=== PATIENT | male | born 1940 | race Caucasian/White ===

== ENCOUNTER → 2017-10-03 08:47 | Outpatient (CLI) | payer OTHER ==
[2015-09-06 08:48] VITALS: BMI 30.7
[~2017-10-03 08:47] MED LIST: ACID REDUCER; BENADRYL25 MG PO
--- NOTE | 2017-10-08 09:02 | EC ---
PATIENT:EVAN BOWLES DATE OF SERVICE: 10/03/17 SEX: M MEDICAL RECORD: [id number] DATE OF : 36 LOCATION:[facility] AGE OF PATIENT: 76 ADMISSION DATE: 10/03/17 REFERRING PHYSICIAN: INTERPRETING PHYSICIAN: ELLIS HENDRIX MD ECHOCARDIOGRAM REPORT ECHO CHARGES 4 ECHO COMPLETE CLINICAL DIAGNOSIS: DIZZINESS ECHOCARDIOGRAPHIC MEASUREMENTS (adult normal given) AC root (d.<3.7cm) 3.9 cm LV Septum d (<1.2 cm> 1.6 cm Valve Excursion 1.4 cm LV Septum (systole) 2.6 cm Left Atria (s.<4.0cm> 3.4 cm LVPW d(<1.2cm) 1.4 cm RV (d.<2.3cm) 2.8 cm LVPW (sytole) 2.2 cm LV diastole(<5.6CM) 6.7 cm MV E-F(>70mm/sec) cm LV systole 4.2 cm LVOT Diameter 2.2 cm MV exc.(>10mm) cm Est.ejection fraction (50-75%) % Pericardial Effusion N DOPPLER: LVIT cm/sec A 71.0 cm/sec E 45.0 cm/sec LA cm/sec RVSP 27.1 mmHg LVOT 82.0 cm/sec AOP1/2T m/s Asc. Ao 387 cm/sec RVOT 67.0 cm/sec RA cm/sec PA 94.0 cm/sec AV Gradient Peak 60.0 mmHg AV Mean 35.0 mmHg AV Area 0.8 cm MV Gradient Peak 3.8 mmHg MV Mean 0.94 mmHg MV Area cm COMMENTS: Senior Software Quality Analyst: Evelia PIZARROOE Load Dispatcher Local: 1 Dr. Hendrix TAPE# PACS DATE OF SERVICE: 10/03/2017 ECHOCARDIOGRAM DATE OF SERVICE: 10/03/2017 FINDINGS: 1. Left ventricle chamber size is mildly dilated. Left ventricular systolic function is preserved. Overall ejection fraction estimated at 55%. 2. Left atrium, right atrium, and right ventricle chamber sizes are within ECHOCARDIOGRAM REPORT [id number] EVAN BOWLES normal limits. 3. Valvular structures: Aortic valve demonstrates moderate calcific aortic stenosis, valve area calculates to 0.8 cm-squared and there is gradient of 60 mm across the valve. The remaining valvular structures have normal structure and motion. 4. Doppler interrogation elsewise only reveals trace mitral regurgitation. No other valvular insufficiency or stenosis. Pulmonary systolic pressure is preserved at 27 mmHg. 5. No evidence of pericardial effusion or left ventricular thrombus. TRANSINT:[id number] Voice Confirmation ID: [id number] DOCUMENT ID: [id number] ELLIS HENDRIX MD at 0902 CC: [id number] DICTATION DATE: 10/03/17 1204 CUSTOMER ADVOCATE: 10/03/17 1220 DEP CLI 10/03/17 [id number] [place] [address]
== END | disposition home or self-care (01) ==
LOC: D.ECHO 08:47
DX: R42 Dizziness and giddiness (principal)

== ENCOUNTER 2020-06-01 17:45 | Inpatient (IN) | payer MEDICARE, BC ==
[~2020-06-01] VITALS: Ht 193 cm; Wt 105.9 kg
--- NOTE | ~2020-06-01 | HEMODYNAMI ---
PATIENT:EVAN BOWLES MEDICAL RECORD: [id number] : 36 LOCATION:[facility] D.2138 ADMISSION DATE: 06/01/20 Generatedon:06/04/202011:52 Patient name: EVAN BOWLES Patient #: [id number] : 1940 Date of study: 06/04/2020 Page: Of Hemodynamic Procedure Report Patient Data Patient Demographics Procedure consent was obtained First Name: EVAN Gender: Male Last Name: JELENA : 1940 Middle Initial: L Age: 79 year(s) Patient #: [id number] Race: SSN: [id number] Additional ID: [id number] Contact details Address: [address] [address] State: [place] City: [place] Zip code: [address] Past Medical History Allergies: No known allergies Admission Admission Data Admission Date: 06/01/2020 Admission Time: 20:59 Arrival Date: 06/01/2020 Arrival Time: 20:59 Admit Source: Emergency Insurance Payor: Medicare department [facility] #: [id number] Room #: D.2138 Height (in.): 75.98 BSA: 2.36 (m2) Height (cm.): 193 BMI: 28.19 (kg/m2) Weight (lbs.): 231.49 Weight (kg.): 105 Lab Results Lab Result Date: 06/04/2020 Lab Result Time: 0:00 Biochemistry Name Units Result Min Max BUN mg/dl 26 --(----)-* 7 18 Creatinine mg/dl 0.9 --(-*--)-- 0.6 1.3 eGFR ml/min 85.37444 -*(----)-- 90 120 NONAFRICAN CBC Name Units Result Min Max Hemoglobin g/dl 13 -*(----)-- 13.5 17.5 Procedure Procedure Types Cath Procedure Diagnostic Procedure LHC LHC w/Coronaries ARIEL Procedure Description Procedure Date Procedure Date: 06/04/2020 Procedure Start Time: 11:27 Procedure End Time: 11:43 Procedure Staff Name Function Gerardo Jay MD Performing Physician Francesca Chavez RT Monitor Rabia Lacey RT Scrub Esha Sargent RN Nurse [place] Provider Relations Consultant Procedure Data Cath Procedure Fluoroscopy Diagnostic fluoroscopy Total fluoroscopy Time: 4.2 time: 4.2 min min Diagnostic fluoroscopy Total fluoroscopy dose: 412 dose: 412 mGy mGy Contrast Material Contrast Material Type Amount (ml) Isovue 370 42 Entry Location Entry Primary Successful Side Size Upsize Upsize Entry Closure Succes sful Closure Location (Fr) 1 (Fr) 2 (Fr) Remarks Device Remarks Femoral Right 5 Fr Exoseal artery Estimated blood loss: 5 ml Diagnostic catheters Device Type Used For End Catheter Placement MULTIPACK JL 4.0 5Fr Procedure catheter MULTIPACK 3DRC 5Fr Procedure catheter Procedure Complications No complications Procedure Medications Medication Administration Route Dosage Oxygen etCO2 Nasal cannula 3 l/min Hurricaine [place] P.O. 1 Sprays Refer to Anesthesia Notes for Sedation Medications Magnesium Sulfate I.V. drip 1 g (1Gm/100ml D5W) unlisted medication I.V. drip 0.5 mg/min Hemodynamics Rest BSA: 2.36 (m2) HGB: 13 (g/dl) O2 Consumption: Estimated: 280.18 (ml/min) O2 Cons umption indexed: Estimated:118.72 (ml/min/m) Heart Rate: 82 (bpm) Pressure Samples Time Site Value (mmHg) Purpose Heart Use Rate(bpm) 11:37 LV 154/20,35 Snapshot 78 Gradients Valve Time Site Site Mean SEP/DFP Peak To Heart Use 1 2 (mmHg) (sec/min) Peak Rate (mmHg) (bpm) Aortic 11:37 LV AO 88 Aortic 11:37 LV AO 74 Snapshots Pre Cath Intra NCS Post Cath Vital Signs Time Heart Resp SPO2 etCO2 NIBP Rhythm Pain Sedation Rate (ipm) (%) (mmHg) (mmHg) Status Level (bpm) 10:54:58 86 21 94 0 112/62(87) NSR 0 (11) 10(A) , No pain 10:59:16 82 22 99 18.7 112/64(89) NSR 0 (11) 10(A) , No pain 11:03:22 68 16 100 12.7 82/66(74) NSR 0 (11) 9(A) , No pain 11:05:09 79 24 97 1.5 100/56(77) NSR 0 (11) 9(A) , No pain 11:07:14 75 25 96 0 99/51(81) NSR 0 (11) 9(A) , No pain 11:09:19 76 26 95 0 94/45(72) NSR 0 (11) 9(A) , No pain 11:13:33 77 18 95 14.2 100/58(78) NSR 0 (11) 9(A) , No pain 11:17:45 75 21 94 23.2 91/59(73) NSR 0 (11) 9(A) , No pain 11:19:07 76 18 95 18.7 95/54(69) NSR 0 (11) 9(A) , No pain 11:23:18 75 17 96 27.7 93/58(68) NSR 0 (11) 9(A) , No pain 11:27:32 72 18 96 20.3 95/50(74) NSR 0 (11) 9(A) , No pain 11:31:47 72 16 96 32.3 90/52(72) NSR 0 (11) 9(A) , No pain 11:35:56 84 23 95 33 104/62(81) NSR 0 (11) 9(A) , No pain 11:40:12 84 22 93 4.5 114/64(89) NSR 0 (11) 10(A) , No pain 11:45:20 84 17 98 7.5 103/72(90) NSR 0 (11) 10(A) , No pain 11:51:41 87 26 96 18 106/68(90) NSR 0 (11) 10(A) , No pain Medications Time Medication Route Dose Verified Delivered Reason Notes Effec tiveness by by 11:00:00 Oxygen etCO2 3 Gerardo Balbuena used for Nasal l/min St Devin Sargent RN procedure cannula 11:00:01 Amiodarone I.V. 0.5 Gerardo Balbuena Per Continued 360 mg/200 drip mg/min St Devin Sargent RN physician drip from [facility] floor. 11:00:08 Hurricaine [address] Gerardo Balbuena Per [place] Sprays St Devin Sargent RN physician MD 11:00:11 Refer to Gerardo Balbuena Anesthesia St Devin Sargent RN Notes for MD Sedation Medications 11:41:40 Magnesium I.V. 1 g Gerardo Aldana for runs Sulfate drip St Devin Sargent RN physician of [facility] (1Gm/100ml D5W) Procedure Log Time Note 9:53:04 Informed consent obtained and on chart 10:06:54 Arrival Date: 06/01/2020 8:59:00 PM 10:07:23 Admit Source: Emergency department 10:07:26 Insurance Payor : Medicare 10:07:33 Patient Height : 75.98 inches 10:07:37 Patient Weight : 231.49 lbs 10:08:09 Lab Result : Hemoglobin 13 g/dl 10:08:09 Lab Result : eGFR NONAFRICAN 85.18851 ml/min 10:08:09 Lab Result : BUN 26 mg/dl 10:08:09 Lab Result : Creatinine 0.9 mg/dl 10:08:14 Diagnostic Cath Status : Urgent 10:10:55 Risk of Mortality: 0.3 10:10:58 Risk of blood transfusion: 0.3 10:11:01 Risk of JASON: 4.0 10:11:07 2) 60-89 Mildly reduced kidney function, and other findings (as for stage 1) point to kidney disease. 10:11:10 Maximum allowable contrast dose (3.7 X eGFR X 0.75)238 ml. 10:43:29 Esha Sargent RN sent for patient. Start room use. 10:43:30 Time tracking: Regular hours (M-F 7:00 - 5:00) 10:43:34 Plan of Care:Hemodynamics will remain stable., Cardiac rhythm will remain stable., Comfort level will be maintained., Respiratory function will remain adequate., Patient/ family verbilizes understanding of procedure., Procedure tolerated without complication., Recovers from procedure without complications.. 10:50:09 Patient received from Med II to CCL 1 Alert and oriented. Tansferred to table in Supine position. 10:50:12 Warm blankets applied, and noe hugger turned on for patient comfort. 10:50:12 Correct patient and procedure confirmed by team. 10:50:13 ECG and BP/O2 sat monitors applied to patient. 10:50:14 Vital chart was started 10:53:53 Full Disclosure recording started 10:54:04 H&P Date Dictated: 06/01/2020 Within 30 days and on chart.. 10:54:05 Pre-procedure instructions explained to patient. 10:54:05 Pre-op teaching completed and patient verbalized understanding. 10:54:21 Procedure Status Urgent Heart Cath (IP), ARIEL. 10:55:38 Family in patients room. 10:55:40 Patient NPO since Midnight. 10:55:46 Patient allergic to No known allergies 10:55:51 Is the patient allergic to Iodine/contrast media? No. 10:55:52 Was the patient premedicated? No 10:55:54 Is patient on blood thinner?No 10:55:56 Patient diabetic? No. 10:55:58 If diabetic: On Metformin? N/A 10:55:59 ----Pre-sedation anethsthesia assessment.---- 10:56:04 Previous problem with sedation/anesthesia? No ? 10:56:13 Snore? Yes 10:56:17 Sleep apnea? No 10:56:19 Deviated septum? No 10:56:21 Opens mouth fully? Yes 10:56:23 Sticks out tongue? Yes 10:56:28 Airway obstruction? No ? 10:56:34 Patient pain scale 0/10 ?. 10:56:41 IV patent on arrival in left antecubital with 0.9% NaCl at KVO. 10:57:10 Modified Fan's test Ulnar > 7 seconds. 10:57:17 Stress Test: no; N/A ? 10:57:19 Lab results completed and on chart. 10:57:32 Alarms reviewed by R. N. 10:57:33 Sharps counted by scrub and verified by R.N. 10:57:44 Right groin area was prepped with chlora-prep and draped in sterile fashion 10:59:15 Baseline sample Acquired. 10:59:26 Rhythm: sinus rhythm 10:59:32 --------ALL STOP TIME OUT------ 10:59:32 Final Timeout: patient, procedure, and site verified with staff and physician. All members of the team are in agreement. 10:59:34 Right groin site verified by team. 10:59:38 Fire Safety Assessment: A--An alcohol-based skin anteseptic being used preoperatively., C--Open oxygen or nitrous oxide is being used., D--An ESU, laser, or fiber-optic light is being used. 10:59:45 Sedation plan: General Anesthesia Medication:Propofol 11:00:00 Oxygen 3 l/min etCO2 Nasal cannula was administered by Esha Sargent RN; used for procedure; Verbal order read back and verified. 11:00:01 Amiodarone 360 mg/200 ml 0.5 mg/min I.V. drip was administered by Esha Sargent RN; Per physician; Continued drip from [facility]. Verbal order read back and verified. 11:00:08 Hurricaine [place] 1 Sprays P.O. was administered by Esha Sargent RN; Per physician; Verbal order read back and verified. 11:00:11 Refer to Anesthesia Notes for Sedation Medications was administered by Esha Sargent RN; ; Verbal order read back and verified. 11:00:16 LILLY DURAN FOR ANESTHESIA IS PRESENT. 11:00:26 ARIEL 11:00:29 [facility] Hardware Installer present for ARIEL. 11:00:31 ARIEL started. 11:08:48 ARIEL completed. 11:09:32 ARIEL Findings: Aortic Stenosis (see MD operative note) 11:26:46 Procedure started. 11:27:35 Local anesthetic to right femoral artery with Lidocaine 2% by Gerardo Jay MD.INITIAL ACCESS ONLY 11:28:16 A 5 Fr sheath was inserted into the Right Femoral artery 11:28:49 Use device set Femoral Dx 11:28:50 ACIST Syringe (12631) opened to sterile field. 11:28:51 Bag Decanter (2002S) opened to sterile field. 11:28:52 Medline Cath Pack ([id number]) opened to sterile field. 11:28:52 ACIST Hand Control (31645) opened to sterile field. 11:28:53 ACIST Manifold (16915) opened to sterile field. 11:28:54 DIAGNOSTIC Multipack 5Fr catheter set ([id number]) opened to sterile field. 11:28:55 SHEATH 5FR Union (LIG533) opened to sterile field. 11:28:55 EMERALD Guide Wire (717-081) opened to sterile field. 11:29:00 A MULTIPACK JL 4.0 5Fr catheter was advanced over the wire and used for Procedure. 11:29:05 LCA angiography performed. 11:29:09 Injector settings: Ml/sec: 3, Volume: 6, 11:30:03 Catheter removed. 11:30:08 A MULTIPACK 3DRC 5Fr catheter was advanced over the wire and used for Procedure. 11:30:40 RCA angiography performed. 11:30:43 Injector settings: Ml/sec: 3, Volume: 6, 11:31:07 Catheter removed. 11:32:19 GUIDE 5FR AL1.0 catheter (OC1DW75) opened to sterile field. 11:32:42 ROADRUNNER .035 260 glide wire (Z31822) opened to sterile field. 11:33:39 ROADRUNNER 260 GLIDEWIRE wire advanced. 11:37:13 LV hemodynamics recorded. 11:37:14 LV gram done using ROJAS 11:37:17 Injector settings: Ml/sec: 5, Volume: 15, 11:37:24 EF : 35 % 11:39:39 Catheter removed. 11:39:43 EXOSEAL 5Fr (EX500) opened to sterile field. 11:39:54 Sheath removed intact; hemostasis achieved with Exoseal to the Right Femoral artery. 11:39:56 Procedure ended.(Physican Out) 11:40:05 Fluoroscopy time 04.20 minutes. 11:40:10 Fluoroscopy dose: 412 mGy 11:40:10 Flurop Dose total: 412 11:40:17 Dose Area Product 53175 mGy/cm. 11:40:28 Contrast amount:Isovue 370 42ml. 11:40:32 Maximum allowable dose exceeded? No. 11:40:33 Sharps counted by scrub and verified by R.N. 11:40:38 Post-op/insertion site Right Femoral artery dressed using a 4 x 4 and Tegaderm. 11:40:44 Post right femoral artery:stable, soft, clean and dry 11:40:46 Post Procedure Pulses reassessed and unchanged 11:40:53 Post-procedure physical assessment completed. ASA score P 2 - A patient with mild systemic disease as per Gerardo Jay MD. 11:40:58 Post procedure rhythm: unchanged. 11:41:01 Estimated blood loss: 5 ml 11:41:03 Post procedure instruction explained to patient.Patient verbalizes understanding. 11:41:07 Patient needs reinforcement of post procedure teaching. 11:41:15 Procedure and supply charges have been captured, reviewed, submitted and are correct. 11:41:40 Magnesium Sulfate (1Gm/100ml D5W) 1 g I.V. drip was administered by Esha Sargent RN; Per physician; for runs of vtach Verbal order read back and verified. 11:42:49 Procedure Complication : No complications 11:42:55 Vital chart was stopped 11:43:06 [facility] Findings: MVD- MD will discuss options w/ pt 11:43:14 Operative report dictated upon procedure completion. 11:43:15 See physician's report for complete and final results. 11:43:16 Report given to [facility]. 11:43:20 Patient transfered to [facility] with Bed. 11:43:22 Procedure ended. 11:43:22 Full Disclosure recording stopped 11:43:33 End room use (Document Last) 11:46:42 ASA-4. 11:48:14 Timer 1 started at 11:33 AM, stopped at 11:48 AM, duration 00:15:02 sec. Device Usage Item Name Manufacture Quantity Catalog Hospital Part Current Minimal L ot# / Number Charge Number Stock Stock Serial# Code ACIST Acist 1 54482 741089 167832 803596 20 Syringe Medical (74741) Systems Inc Bag Microtek 1 443905 07875 433642 5 Decanter Medical Inc. () Medline Medline 1 [id number] 967574 51609 505208 5 Cath Pack ([id number]) ACIST Hand Acist 1 17260 141847 794275 931999 5 Control Medical (90341) Systems Inc ACIST Acist 1 65168 815364 359359 909505 5 Manifold Medical (48339) Systems Inc DIAGNOSTIC Cardinal 1 HU0673 269400 86859 642635 30 Multipack Health 5Fr catheter set (TH6620) SHEATH 5FR Terumo 1 SUN680 691754 469671 057037 5 Union (CIM617) EMERALD Cardinal 1 502-455 751955 387500 763126 5 Guide Wire Health (502-796) MULTIPACK Cardinal 1 042534 5 JL 4.0 5Fr Health catheter MULTIPACK Cardinal 1 696432 5 3DRC 5Fr Health catheter GUIDE 5FR Medtronic 1 [id number] 284579 510183 393888 1 AL1.0 catheter (JP6IE54) [facility] 1 X54380 223745 198050 360177 5 .035 260 glide wire (E81947) EXOSEAL 5Fr Cardinal 1 EX500 925646 602236 502129 10 (EX500) Health Signature Audit Rowena Stage Time Signature Unsigned Intra-Procedure 06/04/2020 Francesca Chavez 11:46:59 AM RT(R) Intra-Procedure 06/04/2020 Esha Sargent RN 11:47:49 AM Intra-Procedure 06/04/2020 Gerardo sIsa 11:52:04 AM Devin [id number] [place] [address]
[2020-06-01 19:40] LABS: BASOPHILS 0.2 % (0-2); EOSINOPHILS 0.9 % (0-7); HEMATOCRIT 40.7 % (42.0-54.0); HEMOGLOBIN 13.2 g/dL (13.5-17.5); IMMATURE GRANULOCYTES 0.3 % (0-5); LYMPHOCYTES 7.5 % (15-50); MCH 30.8 pg (26.0-34.0); MCHC 32.4 g/dL (31.0-37.0); MCV 95.1 fL (80.0-100.0); MEAN PLATELET VOLUME 10.2 fL (7.4-10.4); NEUTROPHILS 83.1 % (40-80); RBC 4.28 10x6/uL (4.20-6.10); RDW 16.4 % (11.5-14.5); WBC 9.7 10x3/uL (4.8-10.8)
[2020-06-01 19:52] LABS: CALC OSMOLALITY 276 mosm/kg (275-300); CALCIUM 8.4 mg/dL (8.5-10.1); CARBON DIOXIDE 34.1 mmol/L (21.0-32.0); CHLORIDE - SERUM 100 mmol/L (98-107); CREATININE - SERUM 1.1 mg/dL (0.6-1.3); GLUCOSE 94 mg/dL (74-106); POTASSIUM - SERUM 3.4 mmol/L (3.5-5.1); SODIUM 136 mmol/L (136-145); UREA NITROGEN 26 mg/dL (7-18); eGFR NON AFRICAN AMERICAN 68 mL/min (90-120)
[2020-06-01 19:53] LABS: INR 1.17 (0.85-1.17); PROTIME 14.8 SECONDS (11.6-15.0)
[2020-06-01 19:54] LABS: APTT 27.8 SECONDS (22.8-39.4)
[2020-06-01 19:57] LABS: PLATELET COUNT 118 10x3/uL (130-400)
[2020-06-01 20:13] LABS: ALKALINE PHOSPHATASE 38 U/L (30-120); ALT (SGPT) 18 U/L (10-68); BILIRUBIN - TOTAL 2.62 mg/dL (0.2-1.3); CKMB 0.7 U/L (0.0-3.6); CREATINE KINASE 58 UL (21-232); PRO BNP 16490 pg/mL (0-450); PROTEIN - SERUM 5.6 g/dL (6.4-8.2)
[2020-06-01 20:46] VITALS: BP 100/49
[2020-06-01 23:08] VITALS: BMI 28.4
--- NOTE | 2020-06-02 02:07 | NUR ---
ORDER FOR TELE, BUT NO TELE AVAILABLE AT THIS TIME PER MEDICAL COLLECTIONS.
[2020-06-02 02:55] LABS: CKMB 0.9 U/L (0.0-3.6); CREATINE KINASE 51 UL (21-232); TROPONIN-I 0.066 ng/mL (0.000-0.060)
[2020-06-02 03:01] LABS: BASOPHILS 0.4 % (0-2); EOSINOPHILS 1.1 % (0-7); HEMATOCRIT 38.3 % (42.0-54.0); HEMOGLOBIN 12.3 g/dL (13.5-17.5); IMMATURE GRANULOCYTES 0.1 % (0-5); LYMPHOCYTES 7.1 % (15-50); MCH 30.5 pg (26.0-34.0); MCHC 32.1 g/dL (31.0-37.0); MEAN PLATELET VOLUME 10.6 fL (7.4-10.4); MONOCYTES 9.1 % (2-11); NEUTROPHILS 82.2 % (40-80); PLATELET COUNT 112 10x3/uL (130-400); RBC 4.03 10x6/uL (4.20-6.10); RDW 16.2 % (11.5-14.5); WBC 7.6 10x3/uL (4.8-10.8)
[2020-06-02 03:05] LABS: ALBUMIN 2.7 g/dL (3.4-5.0); ANION GAP 6.7 mmol/L (8-16); BILIRUBIN - TOTAL 2.28 mg/dL (0.2-1.3); CALCIUM 8.1 mg/dL (8.5-10.1); CARBON DIOXIDE 34.3 mmol/L (21.0-32.0); CREATININE - SERUM 1.1 mg/dL (0.6-1.3); PROTEIN - SERUM 5.1 g/dL (6.4-8.2)
[2020-06-02 07:03] VITALS: BP 102/66
--- NOTE | 2020-06-02 07:27 | NUR ---
PT SITTING UP, RR EVEN AND UNLABORED ON RA. DENIES NEEDS OR PAIN AT THIS TIME. CALL LIGHT WITHIN REACH. BED IN LOWEST POSITION. MENOMINEE. WILL CONTINUE TO MONITOR.
[2020-06-02 10:14] VITALS: BP 93/52
[2020-06-02 12:46] LABS: CKMB 0.9 U/L (0.0-3.6); CREATINE KINASE 45 UL (21-232); TROPONIN-I 0.047 ng/mL (0.000-0.060)
--- NOTE | 2020-06-02 14:32 | NUR ---
I have reviewed this patient and I concur with the Shift Assessment completed by the Licensed Practical Nurse today this shift.
[2020-06-02 15:09] LABS: BACTERIA MODERATE /hpf (NEGATIVE); BILIRUBIN NEGATIVE (NEGATIVE); EPITHELIAL CELLS OCC /hpf (0-5); GLUCOSE NEGATIVE (NEGATIVE); KETONE NEGATIVE (NEGATIVE); NITRITE NEGATIVE (NEGATIVE); RED CELLS - URINE RARE /hpf (0-5); UROBILINOGEN NORMAL (NORMAL)
[2020-06-02 17:03] VITALS: Ht 193 cm; Wt 105.9 kg
[2020-06-02 19:13] LABS: CKMB 0.3 U/L (0.0-3.6); CREATINE KINASE 17 UL (21-232)
[2020-06-02 20:00] VITALS: BP 128/67
[2020-06-03] VITALS: BP 117/65
[2020-06-03 04:00] VITALS: BP 116/70
[2020-06-03 06:01] LABS: BASOPHILS 0.3 % (0-2); EOSINOPHILS 0.7 % (0-7); HEMATOCRIT 39.7 % (42.0-54.0); HEMOGLOBIN 12.8 g/dL (13.5-17.5); IMMATURE GRANULOCYTES 0.3 % (0-5); LYMPHOCYTES 5.7 % (15-50); MCH 30.4 pg (26.0-34.0); MCHC 32.2 g/dL (31.0-37.0); MCV 94.3 fL (80.0-100.0); MEAN PLATELET VOLUME 10.8 fL (7.4-10.4); MONOCYTES 10.4 % (2-11); NEUTROPHILS 82.6 % (40-80); PLATELET COUNT 125 10x3/uL (130-400); RBC 4.21 10x6/uL (4.20-6.10); RDW 16.2 % (11.5-14.5); WBC 7.3 10x3/uL (4.8-10.8)
--- NOTE | 2020-06-03 07:31 | NUR ---
PT SITTING UP ON SIDE OF BED, DENIES PAIN OR NEEDS, SR UP X2, CALL LIGHT IN REACH, SR UP X2, BED LOW AND LOCKED, WILL CONTINUE TO MONITOR 1020 GAVE PT MORNING MEDS, NO OTHER NEEDS VOICED 1035 NEW IV STARTED TO LEFT FOREARM SITE CLEAR 1539 CHANGED BILATERAL LEG DRESSING PER ORDERS, PT TOLERATED WELL
[2020-06-03 07:45] LABS: ALBUMIN 2.8 g/dL (3.4-5.0); ALKALINE PHOSPHATASE 42 U/L (30-120); ALT (SGPT) 16 U/L (10-68); BILIRUBIN - TOTAL 1.93 mg/dL (0.2-1.3); CALC OSMOLALITY 277 mosm/kg (275-300); CALCIUM 8.1 mg/dL (8.5-10.1); CARBON DIOXIDE 30.7 mmol/L (21.0-32.0); CHLORIDE - SERUM 101 mmol/L (98-107); GLUCOSE 99 mg/dL (74-106); MAGNESIUM - SERUM 2.1 mg/dL (1.8-2.4); POTASSIUM - SERUM 3.1 mmol/L (3.5-5.1); PROTEIN - SERUM 5.4 g/dL (6.4-8.2); SODIUM 137 mmol/L (136-145); UREA NITROGEN 25 mg/dL (7-18); eGFR NON AFRICAN AMERICAN 76 mL/min (90-120)
[2020-06-03 09:57] VITALS: BP 96/44
--- NOTE | 2020-06-03 14:53 | EC ---
PATIENT:EVAN BOWLES DATE OF SERVICE: 06/01/20 SEX: M MEDICAL RECORD: [id number] DATE OF : 38 LOCATION:D.M2 D.213 AGE OF PATIENT: 79 ADMISSION DATE: 06/01/20 REFERRING PHYSICIAN: INTERPRETING PHYSICIAN: OBI PALMA MD ECHOCARDIOGRAM REPORT ECHO CHARGES 4 ECHO COMPLETE Date: 06/02/20 CLINICAL DIAGNOSIS: DYSPNEA ECHOCARDIOGRAPHIC MEASUREMENTS (adult normal given) AC root (d.<3.7cm) 2.8 cm LV Septum d (<1.2 cm> 0.9 cm Valve Excursion 1.4 cm LV Septum (systole) 1.1 cm Left Atria (s.<4.0cm> 4.4 cm LVPW d(<1.2cm) 1.5 cm RV (d.<2.3cm) 3.2 cm LVPW (sytole) 2.0 cm LV diastole(<5.6CM) 6.6 cm MV E-F(>70mm/sec) cm LV systole 5.1 cm LVOT Diameter 1.3 cm MV exc.(>10mm) cm Est.ejection fraction (50-75%) % DOPPLER: LVIT cm/sec A 57 cm/sec E 99 cm/sec LA cm/sec RVSP 27.1 mmHg LVOT 97 cm/sec AOP1/2T m/s Asc. Ao 209 cm/sec RVOT 60 cm/sec RA cm/sec PA 153 cm/sec AV Gradient Peak 17.4 mmHg AV Mean 12.2 mmHg AV Area 0.6 cm MV Gradient Peak 7.4 mmHg MV Mean 3.2 mmHg MV Area cm COMMENTS: Fusing Machine Feeder: Aysha GAYTANMARIA DEL ROSARIO BRY Supervisor Dials: 3 Dr. Kaplan TAPE# PACS Pericardial Effusion N DATE OF SERVICE: Adequate 2D, color-flow imaging, spectral Doppler, and M-Mode No LVH. LV internal dimensions are normal. Wall motion is mildly globally hypo with EF reduced at 40% to 45%. Aortic valve has calcified restriction of leaflet motion. Calculated aortic valve area is 0.6 cm-squared putting in the severe range. Left atrium dilated at 4.4 cm. Mitral valve shows no prolapse. Mild plus MR. Right-sided chambers are grossly normal. Trace TR. ECHOCARDIOGRAM REPORT [id number] EVAN BOWLES TRANSINT:[id number] Voice Confirmation ID: [id number] DOCUMENT ID: [id number] OBI PALMA MD at 1453 CC: [id number] DICTATION DATE: 06/03/20807 TERMINAL OPERATOR: 06/03/20 0859 ADM IN [address] [place] [address]
[2020-06-03 15:06] VITALS: BP 111/56
[2020-06-03 16:29] LABS: CHOL - HDL RATIO 2.7 ratio (2.3-4.9); LDL-HDL RATIO 1.5 ratio (1.5-3.5)
--- NOTE | 2020-06-03 19:15 | NUR ---
PATIENT IS RESTING IN BED. HE IS VERY TABLE MOUNTAIN. HE IS ALERT AND ORIENTED. HE IS USING THE URINAL APPROPRIATELY. HE IS ON ROOM AIR. HIS HEART RHYTHM IS NORMAL SINUS. WE WILL CONTINUE TO MONITOR HIS HEART RATE AND RHYTHM
[2020-06-03 20:00] VITALS: BP 121/52
[2020-06-04] VITALS: BP 125/55
--- NOTE | 2020-06-04 00:30 | NUR ---
AT 2335 PATIENT GOT UP TO URINATE. HE WENT INTO AFIB RVR AT 145. EKG CONFIRMED A FIB RVR AT 136. I PAGED DR. PALMA, WHO ORDERED AMIODARONE DRIP AND BOLUS
[2020-06-04 04:00] VITALS: BP 109/63
--- NOTE | 2020-06-04 04:30 | NUR ---
PATIENT IS STILL ON AMIODARONE DRIP. HIS HEART RHYTHM AND RATE ARE NOW WNL. HE RECEIVED A BED BATH. HE IS SQUAXIN. i GAVE HIM SOME EDUCATION ON AFIB. WE WILL CONTINUE TO MONITOR HIS RATE AND RHYTHM.
--- NOTE | 2020-06-04 07:37 | NUR ---
REPORT RECEIVED. WILL CONTINUE WITH POC. PT CURRENTLY SITTING UP IN BED. CALL LIGHT W/I REACH. AAO AND UP WITH ASSIST. FALL PRECAUTIONS IN PLACE. RR EVEN AND UNLABORED ON RA. AMIODORONE DRIP DECREASED TO 0.5MG/MIN PER PROTOCOL INFUSING VIS L.FOR PIV. NO S/S OF DISTRESS NOTED. HRR IS NS AT 81. WILL CTM.
[2020-06-04 07:56] LABS: BASOPHILS 0.5 % (0-2); EOSINOPHILS 0.5 % (0-7); HEMATOCRIT 39.8 % (42.0-54.0); IMMATURE GRANULOCYTES 0.2 % (0-5); LYMPHOCYTES 7.7 % (15-50); MCH 30.7 pg (26.0-34.0); MCHC 32.7 g/dL (31.0-37.0); MCV 94.1 fL (80.0-100.0); MEAN PLATELET VOLUME 10.9 fL (7.4-10.4); MONOCYTES 12.6 % (2-11); NEUTROPHILS 78.5 % (40-80); PLATELET COUNT 131 10x3/uL (130-400); RBC 4.23 10x6/uL (4.20-6.10); RDW 16.2 % (11.5-14.5); WBC 5.9 10x3/uL (4.8-10.8)
[2020-06-04 08:21] VITALS: BP 101/53; BP 177/64
[2020-06-04 08:27] LABS: ALBUMIN 2.8 g/dL (3.4-5.0); ALKALINE PHOSPHATASE 38 U/L (30-120); ALT (SGPT) 19 U/L (10-68); BILIRUBIN - TOTAL 1.61 mg/dL (0.2-1.3); CALC OSMOLALITY 279 mosm/kg (275-300); CALCIUM 8.2 mg/dL (8.5-10.1); CARBON DIOXIDE 28.6 mmol/L (21.0-32.0); CHLORIDE - SERUM 101 mmol/L (98-107); CREATININE - SERUM 0.9 mg/dL (0.6-1.3); GLUCOSE 108 mg/dL (74-106); POTASSIUM - SERUM 3.3 mmol/L (3.5-5.1); PROTEIN - SERUM 4.9 g/dL (6.4-8.2); SODIUM 137 mmol/L (136-145); UREA NITROGEN 26 mg/dL (7-18); eGFR NON AFRICAN AMERICAN 86 mL/min (90-120)
[2020-06-04 09:13] LABS: CHOL - HDL RATIO 2.9 ratio (2.3-4.9); LDL-HDL RATIO 1.7 ratio (1.5-3.5)
--- NOTE | 2020-06-04 12:08 | NUR ---
RECEIVED PT FROM PELT DROPPER. RIGHT FEM SITE IS C/D/I WITH NO S/S OF HEMATOMA PRESENT. AMIODORONE INFUSING @16.7ML/HR VIA L.FOR PIV. PT HAD RUN OF 8 VTAC. NOTIFIED WHO STATED HE WOULD SWITCH THE PT TO SOTOLOL. WILL CTM.
--- NOTE | 2020-06-04 12:23 | NUR ---
AMIODORONE INFUSION STOPPED @1220
--- NOTE | 2020-06-04 15:26 | NUR ---
SIRI WRAP REMOVED TO BOTH LEGS. LEFT LEG DRESSING REMOVED. HEALED BLISTER UNDERNEATH WITH NO SIGNS OF REDNESS OR DRAINAGE PRESENT. CLEANED WITH WOUND CLEANSER AND APPLIED NEW BORDER DRESSING. WILL LEAVE LEGS UNWRAPPED FOR 2 HOURS AND REWRAP. WILL CTM.
[2020-06-04 16:33] VITALS: BP 153/57
--- NOTE | 2020-06-04 18:02 | NUR ---
PT STATES THAT HE PREFERS TO WAIT UNTIL TOMORROW MORNING BEFORE WRAPPING HIS LEGS AGAIN WITH SIRI WRAP. WILL CTM.
--- NOTE | 2020-06-04 19:05 | NUR ---
REPORT RECEIVED, PT CARE ASSUMED. INTRODUCED SELF AND WROTE NAME ON BOARD. PT SITTING UP IN BED WITH EYES CLOSED, RR EVEN AND NONLABORED, NO S/S OF DISTRESS, AROUSES EASILY TO VOICE. DENIES ANY NEEDS AT THIS TIME. BED IN LOWEST, SRX2, CALL LIGHT WITHIN REACH. WILL CTM.
[2020-06-04 20:54] VITALS: BP 110/76
[2020-06-05 00:48] VITALS: BP 119/56
[2020-06-05 04:46] VITALS: BP 111/51
[2020-06-05 07:10] LABS: BASOPHILS 0.5 % (0-2); EOSINOPHILS 0.1 % (0-7); HEMATOCRIT 44.6 % (42.0-54.0); HEMOGLOBIN 14.4 g/dL (13.5-17.5); IMMATURE GRANULOCYTES 0.2 % (0-5); LYMPHOCYTES 8.2 % (15-50); MCH 30.3 pg (26.0-34.0); MCHC 32.3 g/dL (31.0-37.0); MCV 93.7 fL (80.0-100.0); MEAN PLATELET VOLUME 11.2 fL (7.4-10.4); MONOCYTES 11.3 % (2-11); NEUTROPHILS 79.7 % (40-80); RBC 4.76 10x6/uL (4.20-6.10); RDW 15.8 % (11.5-14.5)
[2020-06-05 07:11] LABS: PLATELET COUNT 177 10x3/uL (130-400); WBC 8.3 10x3/uL (4.8-10.8)
[2020-06-05 07:28] LABS: ALBUMIN 3.1 g/dL (3.4-5.0); ANION GAP 11.9 mmol/L (8-16); BILIRUBIN - TOTAL 2.02 mg/dL (0.2-1.3); CALCIUM 8.5 mg/dL (8.5-10.1); CARBON DIOXIDE 26.1 mmol/L (21.0-32.0); CREATININE - SERUM 1.3 mg/dL (0.6-1.3); MAGNESIUM - SERUM 2.4 mg/dL (1.8-2.4); PROTEIN - SERUM 5.5 g/dL (6.4-8.2)
--- NOTE | 2020-06-05 07:30 | NUR ---
PT SITTING UP IN BED, RR EVEN AND UNLABORED. DENIES NEEDS OR PAIN AT THIS TIME. CALL LIGHT WITHIN REACH. BED IN LOWEST POSITION. WILL CONTINUE TO MONITOR.
[2020-06-05] MEDS ORDERED: LEVOXYL75 MCG PO (08:53)
[2020-06-05] MEDS ORDERED: ENTRESTO 49 MG1 EACH PO (08:53)
[2020-06-05] MEDS ORDERED: LEVOFLOXACIN500 MG PO (08:54)
[2020-06-05] MEDS ORDERED: FUROSEMIDE40 MG PO (08:54)
[2020-06-05] MEDS ORDERED: TOPROL XL25 MG PO (08:55)
[2020-06-05] MEDS ORDERED: KLONOPIN0.5 MG PO (08:56)
[2020-06-05 09:41] VITALS: BP 130/62
--- NOTE | 2020-06-05 16:54 | NUR ---
PATIENT CHART/ASSESSMENT REVIEWED. THIS PROVIDER RELATIONS CONSULTANT CONCURS WITH THE ASSESSMENT COMPLETED ON THIS SHIFT BY BRAAYN MONTES.
--- NOTE | 2020-06-05 19:05 | NUR ---
REPORT RECEIVED, PT CARE ASSUMED. WROTE NAME ON BOARD. PT SITTING UP IN BED WITH EYES CLOSED, RR EVEN AND NONLABORED, NO S/S OF DISTRESS, AROUSES EASILY TO VOICE. DENIES ANY NEEDS AT THIS TIME. BED IN LOWEST, SR X2, CALL LIGHT AND URINAL WITHIN REACH. WILL CTM.
[2020-06-05 20:00] VITALS: BP 124/64
[2020-06-06 04:00] VITALS: BP 110/52
[2020-06-06 06:59] LABS: BASOPHILS 0.6 % (0-2); EOSINOPHILS 0.4 % (0-7); HEMATOCRIT 39.7 % (42.0-54.0); IMMATURE GRANULOCYTES 0.5 % (0-5); LYMPHOCYTES 7.1 % (15-50); MCH 30.4 pg (26.0-34.0); MCHC 32.7 g/dL (31.0-37.0); MCV 92.8 fL (80.0-100.0); MEAN PLATELET VOLUME 10.8 fL (7.4-10.4); MONOCYTES 14.5 % (2-11); NEUTROPHILS 76.9 % (40-80); PLATELET COUNT 199 10x3/uL (130-400); RBC 4.28 10x6/uL (4.20-6.10); RDW 15.6 % (11.5-14.5); WBC 8.5 10x3/uL (4.8-10.8)
[2020-06-06 07:31] LABS: ALBUMIN 2.6 g/dL (3.4-5.0); ANION GAP 10.4 mmol/L (8-16); BILIRUBIN - TOTAL 1.78 mg/dL (0.2-1.3); CALCIUM 8.4 mg/dL (8.5-10.1); CARBON DIOXIDE 29.6 mmol/L (21.0-32.0); CREATININE - SERUM 1.4 mg/dL (0.6-1.3); MAGNESIUM - SERUM 2.2 mg/dL (1.8-2.4); PROTEIN - SERUM 5.1 g/dL (6.4-8.2)
[2020-06-06 09:24] VITALS: BP 128/62
[2020-06-06 12:00] VITALS: BP 125/68
--- NOTE | 2020-06-06 14:48 | MORECARE ---
CASE MANAGEMENT DISCHARGE SUMMARY PATIENT: EVAN BOWLES UNIT: [id number] ADM DATE: 06/01/20 AGE: 79 : 38 SEX: M ROOM/BED: D.2134 AUTHOR: SANDRA GUERRIER PHYSICIAN: REFERRING PHYSICIAN: JOANN PASCAL MD DATE OF SERVICE: 06/06/20 Discharge Plan Patient Name: EVAN BOWLES [facility] 1940 Planned Disposition: Home with Home Health Anticipated Discharge Date: Discharge Date: Expected LOS: Initial Reviewer: [email or web address] Initial Review Date: 06/01/2020 Generated: 06/06/20 3:47 pm Coverage Notice Reviewer: [email or web address] Yessica Taylor Notice Issued Date-Time: 06/06/2020 14:05 Notice Type: IM Discharge Notice Notice Delivered To: Patient Relationship to Patient: Self Installation Service Representative Name: Delivery Method: HAND - Hand Delivered Inez Days: Prior Verbal Notification: Recipient Understood Notice: Yes Recipient Signature: Yes Med Rec Note Co-signed by Attending: Coverage Notice Comment: Reviewer: [email or web address] Yessica Taylor Notice Issued Date-Time: 06/06/2020 14:05 Notice Type: Patient Choice Letter Notice Delivered To: Patient Relationship to Patient: Installation Service Representative Name: Delivery Method: HAND - Hand Delivered Inez Days: Prior Verbal Notification: Recipient Understood Notice: Yes Recipient Signature: Yes Med Rec Note Co-signed by Attending: Coverage Notice Comment: RESUME [facility] Patient Name: EVAN BOWLES Page [phone] at 1448 All edits/amendments must be made on the electronic document DICTATION DATE: 06/06/20 1448 TESTING SPECIALIST: JUSTINE 06/06/20 1448 RPT#: [id number] [place] DATE: STATUS: ADM IN [address] [address] [address] [place] [address] END OF REPORT
--- NOTE | 2020-06-06 14:54 | MORECARE ---
CASE MANAGEMENT DISCHARGE SUMMARY PATIENT: EVAN BOWLES UNIT: [id number] ADM DATE: 06/01/20 AGE: 79 : 38 SEX: M ROOM/BED: D.2138 AUTHOR: SANDRA GUERRIER PHYSICIAN: REFERRING PHYSICIAN: JOANN PASCAL MD DATE OF SERVICE: 06/06/20 Discharge Plan Patient Name: EVAN BOWLES [facility] [facility] 1940 Planned Disposition: Home with Home Health Anticipated Discharge Date: Discharge Date: Expected LOS: Initial Reviewer: [id number] Initial Review Date: 06/01/2020 Generated: 06/06/20 3:54 pm External Providers External Provider: [facility] Next Contact Date: Service Request Date: Service Type: Resolution: Reviewer: Comments: Coverage Notice Reviewer: [id number] Yessica Taylor Notice Issued Date-Time: 06/06/2020 14:05 Notice Type: IM Discharge Notice Notice Delivered To: Patient Relationship to Patient: Self Publications Distribution Clerk Name: Delivery Method: HAND - Hand Delivered Inez Days: Prior Verbal Notification: Recipient Understood Notice: Yes Recipient Signature: Yes Med Rec Note Co-signed by Attending: Coverage Notice Comment: Reviewer: [id number] Taylor Notice Issued Date-Time: 06/06/2020 14:05 Notice Type: Patient Choice Letter Notice Delivered To: Patient Relationship to Patient: Publications Distribution Clerk Name: Delivery Method: HAND - Hand Delivered Inez Days: Prior Verbal Notification: Recipient Understood Notice: Yes Recipient Signature: Yes Med Rec Note Co-signed by Attending: Coverage Notice Comment: [facility] Last DP export: 06/06/20 1:48 p Patient Name: EVAN BOWLES Page [id number] at 1454 All edits/amendments must be made on the electronic document DICTATION DATE: 06/06/201453 NNPS: JUSTINE 06/06/20 1454 RPT#: [id number] DC DATE: STATUS: ADM IN [facility] [address] [place] [address] END OF REPORT
--- NOTE | 2020-06-06 15:01 | MORECARE ---
CASE MANAGEMENT DISCHARGE SUMMARY PATIENT: EVAN BOWLES UNIT: [id number] ADM DATE: 06/01/20 AGE: 79 : 38 SEX: M ROOM/BED: D.2134 AUTHOR: CHEYDOC PHYSICIAN: REFERRING PHYSICIAN: JOANN PASCAL MD DATE OF SERVICE: 06/06/20 Discharge Plan Patient Name: EVAN BOWLES Facility[facility]:[place] : 1940 Planned Disposition: Home with Home Health Anticipated Discharge Date: Discharge Date: Expected LOS: Initial Reviewer: [id number] Initial Review Date: 06/01/2020 Generated: 06/06/20 4:00 pm DCPIA - Discharge Planning Initial Assessment Updated by PATRICK: Cristina Taylor on 06/06/20 2:59 pm * Is the patient Alert and Oriented? Yes * How many steps to enter\exit or inside your home? * PCP [facility] * Pharmacy [facility] IN [place] * Preadmission Environment Home with Family * ADLs Independent * Other Equipment BSC, ROLLATOR * List name and contact numbers for known caregivers / representatives who currently or will assist patient after discharge: OTILIA BOWLES - - [phone] * Verbal permission to speak to the caregivers and representatives has been obtained from the patient. Yes * Community resources currently utilized Home Health * Please name any agencies selected above. [facility] * Additional services required to return to the preadmission environment? No * Can the patient safely return to the preadmission environment? Yes * Has this patient been hospitalized within the prior 30 days at any hospital? No Coverage Notice Reviewer: [id number] Yessica Taylor Notice Issued Date-Time: 06/06/2020 14:05 Notice Type: IM Discharge Notice Notice Delivered To: Patient Relationship to Patient: Self Heating And Refrigeration Inspector Name: Delivery Method: HAND - Hand Delivered Inez Days: Prior Verbal Notification: Recipient Understood Notice: Yes Recipient Signature: Yes Med Rec Note Co-signed by Attending: Coverage Notice Comment: Reviewer: [id number] Yessica Taylor Notice Issued Date-Time: 06/06/2020 14:05 Notice Type: Patient Choice Letter Notice Delivered To: Patient Relationship to Patient: Heating And Refrigeration Inspector Name: Delivery Method: HAND - Hand Delivered Inez Days: Prior Verbal Notification: Recipient Understood Notice: Yes Recipient Signature: Yes Med Rec Note Co-signed by Attending: Coverage Notice Comment: [facility] Last DP export: 06/06/20 1:54 p Patient Name: EVAN BOWLES Page [phone] at 1501 All edits/amendments must be made on the electronic document DICTATION DATE: 06/06/201499 OIL SEAL ASSEMBLER: JUSTINE 06/06/20 1500 RPT#: [id number] DC DATE: STATUS: ADM IN [facility] [address] [place] [address] END OF REPORT
--- NOTE | 2020-06-06 15:01 | NUR ---
PT DISCHARGED HOME VIA WHEELCHAIR WITH FAMILY. PIV REMOVED WITH CATHETER TIP FULLY INTACT. PT SIGNED PROPER DISCHARGE INSTRUCTIONS AND REMOVED ALL VALUABLES FROM THE ROOM. TELEMETRY REMOVED AND RETURNED.
--- NOTE | 2020-06-06 15:07 | MORECARE ---
CASE MANAGEMENT DISCHARGE SUMMARY PATIENT: EVAN BOWLES UNIT: [id number] ADM DATE: 06/01/20 AGE: 79 : 38 SEX: M ROOM/BED: D.1903 AUTHOR: CHEYDOC PHYSICIAN: REFERRING PHYSICIAN: JOANN PASCAL MD DATE OF SERVICE: 06/06/20 Discharge Plan Patient Name: EVAN BOWLES Facility: [facility]:[place] : 1940 Planned Disposition: Home with Home Health Anticipated Discharge Date: Discharge Date: 06/06/2020 Expected LOS: Initial Reviewer: [id number] Initial Review Date: 06/01/2020 Generated: 06/06/20 4:07 pm Comments DCP- Discharge Planning Updated by [email or web address]: Cristina Taylor on 06/06/20 2:[address] Patient Name: EVAN BOWLES Admission Status: ER Accout number: [id number] Admission Date: 06-01-2020 : 1940 Admission Diagnosis:SHORTNESS OF BREATH Attending: EIRC PASCAL Current LOS: 5 Anticipated DC Date: Planned Disposition: Home with Home Health Primary Insurance: MEDICARE A & B Discharge Planning Comments: CM met with patient to complete initial dc planning assessment. CM educated patient on the CM role and verbal consent given by patient to complete assessment. Patient lives at home with family. Patient is independent. At discharge patient plans to return home and feels this is a safe discharge. CM discussed availability of home health, rehab services, and medical equipment. Patient states that he currently has [facility] and wishes to resume care with them. D/C IMM signed 06/06/20 @ 1405. Patient will have family to transport home. Patient denied known discharge needs at this time. CM will continue to follow and will assist as needed with dc plans/needs. Sign Fabricator: Cristina Taylor Appended by Cristina Taylor on 06/06/2020 15:02 CDT: CM faxed D/C ins and meds to [facility] for update DCPIA - Discharge Planning Initial Assessment Updated by [id number]: Cristina Taylor on 06/06/20 2:59 pm * Is the patient Alert and Oriented? Yes * How many steps to enter\exit or inside your home? * PCP [facility] * Pharmacy [facility] [place] * Preadmission Environment Home with Family * ADLs Independent * Other Equipment BSC, ROLLATOR * List name and contact numbers for known caregivers / representatives who currently or will assist patient after discharge: OTILIA BOWLES - - [phone] * Verbal permission to speak to the caregivers and representatives has been obtained from the patient. Yes * Community resources currently utilized Home Health * Please name any agencies selected above. [facility] * Additional services required to return to the preadmission environment? No * Can the patient safely return to the preadmission environment? Yes * Has this patient been hospitalized within the prior 30 days at any hospital? No Coverage Notice Reviewer: [id number] Yessica Taylor Notice Issued Date-Time: 06/06/2020 14:05 Notice Type: IM Discharge Notice Notice Delivered To: Patient Relationship to Patient: Self Tank Wagon Operator Name: Delivery Method: HAND - Hand Delivered Inez Days: Prior Verbal Notification: Recipient Understood Notice: Yes Recipient Signature: Yes Med Rec Note Co-signed by Attending: Coverage Notice Comment: Reviewer: [id number] Taylor Notice Issued Date-Time: 06/06/2020 14:05 Notice Type: Patient Choice Letter Notice Delivered To: Patient Relationship to Patient: Tank Wagon Operator Name: Delivery Method: HAND - Hand Delivered Inez Days: Prior Verbal Notification: Recipient Understood Notice: Yes Recipient Signature: Yes Med Rec Note Co-signed by Attending: Coverage Notice Comment: [facility] Last DP export: 06/06/20 2:01 p Patient Name: EVAN BOWLES Page [phone] at 1507 All edits/amendments must be made on the electronic document DICTATION DATE: 06/06/20 1507 JOSS HOUSE KEEPER: JUSTINE 06/06/20 1507 RPT#: [id number] DC DATE:06/06/20 STATUS: DIS IN [place] [address] [place] [address] END OF REPORT
--- NOTE | 2020-06-07 07:56 | TEE ---
PATIENT:EVAN BOWLES MEDICAL RECORD: [id number] LOCATION:D. D213 AGE OF PATIENT: 79 ADMISSION DATE: 06/01/20 SEX: M REFERRING PHYSICIAN: INTERPRETING PHYSICIAN: OBI PALMA MD TRANSESOPHAGEAL ECHOCARDIOGRAM Date: 06/04/20 ARIEL CHARGE Y INDICATIONS: AORTIC STENOSIS PREMEDICATIONS: PATIENT'S RESPONSE PROCEDURE DOPPLER MEASUREMENTS: LVIT LA PA 153 RA LVOT 97 RVOT 60 Asc. Ao 209 AV Gradient Peak 17.4 AV Mean 12.2 AV Area 0.4 MV Gradient Peak 7.4 MV Mean 3.2 MV Area INTERPRETATION: Doppler: 2-D: COLOR FLOW DOPPLER NORMAL SALINE STUDY: MISCELLANOUS: DIAGNOSIS: PLAN: Miter Cutter:3 Dr. Kaplan Reading Intervention Teacher: Aysha LONDONO COMMENTS: DATE OF SERVICE: 06/04/2020 PROCEDURE: Transesophageal note. DESCRIPTION OF PROCEDURE: After general sedation via TIVA via anesthesia, transesophageal Omniplane probe was placed into the distal esophagus and proximal stomach without difficulty. FINDINGS: LVH is present. LV internal dimensions appear at least upper limits TRANSESOPHAGEAL ECHOCARDIOGRAM REPORT [id number] EVAN BOWLES of normal. The LV is mildly globally hypokinetic with reduced EF 30% to 35%. Aortic valve has calcified restriction of leaflet motion. There is moderate to severe AI. In addition, we were able to planimetry the aortic valve in short axis, approximately 0.4 cm-squared. The left atrium appears normal. Mitral valve is well visualized without evidence of thrombus. Mild MR. Right-sided chambers appear grossly normal. Mild TR. At the end of procedure, the probe was turned posteriorly and this showed minimal atherosclerotic debris in the descending aorta. During the procedure, the patient was monitored continuously with pulse oximetry, telemetry and noninvasive blood pressure monitoring. TRANSINT:[id number] Voice Confirmation ID: [id number] DOCUMENT ID: [id number] at 0756 CC: [id number] DICTATION DATE: 06/04/20 1159 STEREO PLOTTER OPERATOR: 06/04/20 1334 DIS IN 06/06/20 [facility] [address] [place] [id number]
--- NOTE | 2020-06-08 08:41 | OP ---
PATIENT NAME: EVAN BOWLES MEDICAL RECORD: [id number] :36 LOCATION:D.M2 D.2138 ADMISSION DATE:06/01/20 SURGEON: OBI PALMA MD DATE OF OPERATION: 06/04/2020 PROCEDURE: Left heart catheterization, selective coronary angiography, right femoral artery approach. CATHETERS: A 5-Kosovan sheath, 5/4 left and right Eloy, 5/4 pig. The procedure was well tolerated. The patient returned to estrella, sheath removed. ExoSeal device placed. FINDINGS: Left ventriculography in 30-degree ROJAS view shows global hypokinesis, more marked apical hypokinesis, LV function is reduced at 30% to 35%. We were able to cross the aortic valve and this showed a peak gradient of 60 mmHg. CORONARY ANATOMY: LEFT MAIN: Left main is free of disease. LAD: Free of disease in the diagonal system. CIRCUMFLEX: Left dominant system, free of disease. RIGHT CORONARY ARTERY: Rudimentary, free of disease. IMPRESSION: Critical aortic stenosis, decreased left ventricular function. TRANSINT:[id number] Voice Confirmation ID: [id number] DOCUMENT ID: [id number] OBI PALMA MD at 0841 CC: [id number] DICTATION DATE: 06/04/20 1201 COAL WASHER: 06/04/20 2313 DIS IN 06/06/20 [facility] [address] [place] [address]
== END 2020-06-06 15:01 | disposition home health service (06) | DRG 292 ==
LOC: D.ER 17:45 → D.M2 20:59
PROVIDERS: Family Medicine; Internal Medicine Interventional Cardiology; ADMIT Emergency Medicine; ATTEND Emergency Medicine
DX: I50.41 Acute combined systolic (congestive) and diastolic (congestive) heart failure (principal); J98.11 Atelectasis; I35.0 Nonrheumatic aortic (valve) stenosis; D64.9 Anemia, unspecified; E87.6 Hypokalemia; E03.9 Hypothyroidism, unspecified; N40.0 Benign prostatic hyperplasia without lower urinary tract symptoms; F03.90 Unspecified dementia, unspecified severity, without behavioral disturbance, psychotic disturbance, mood disturbance, and anxiety; Z86.73 Personal history of transient ischemic attack (TIA), and cerebral infarction without residual deficits

== ENCOUNTER → 2020-06-25 18:25 | Outpatient (CLI) | payer MEDICARE, BC ==
[2020-06-02 17:03] VITALS: BMI 28.4
[~2020-06-25 18:25] MED LIST changes: +ENTRESTO 49 MG1 EACH PO; +FUROSEMIDE40 MG PO; +KLONOPIN0.5 MG PO; +LEVOFLOXACIN500 MG PO; +LEVOXYL75 MCG PO; +TOPROL XL25 MG PO
[2020-06-25 18:47] LABS: CALC OSMOLALITY 273 mosm/kg (275-300); CALCIUM 8.1 mg/dL (8.5-10.1); CARBON DIOXIDE 27.5 mmol/L (21.0-32.0); CHLORIDE - SERUM 98 mmol/L (98-107); CREATININE - SERUM 0.9 mg/dL (0.6-1.3); GLUCOSE 95 mg/dL (74-106); POTASSIUM - SERUM 3.4 mmol/L (3.5-5.1); SODIUM 135 mmol/L (136-145); UREA NITROGEN 23 mg/dL (7-18); eGFR NON AFRICAN AMERICAN 86 mL/min (90-120)
== END | disposition home or self-care (01) ==
LOC: D.LABREF 18:25
PROVIDERS: ATTEND Internal Medicine Interventional Cardiology
DX: I10 Essential (primary) hypertension (principal)

== ENCOUNTER 2021-03-03 10:14 | Emergency (ER) | payer MEDICARE, BC ==
[~2021-03-03] VITALS: Ht 193 cm; Wt 81.8 kg
[2021-03-03 10:26] VITALS: Ht 193 cm; Wt 81.8 kg
[2021-03-03 11:26] VITALS: BP 120/70
== END 2021-03-03 11:37 | disposition home or self-care (01) ==
LOC: D.ER 10:14
DX: I73.9 Peripheral vascular disease, unspecified (principal); S80.822A Blister (nonthermal), left lower leg, initial encounter; X58.XXXA Exposure to other specified factors, initial encounter; Z86.73 Personal history of transient ischemic attack (TIA), and cerebral infarction without residual deficits